=== PATIENT | male | born 1940 | race Caucasian/White ===

== ENCOUNTER 2016-10-27 14:00 | Emergency (ER) | payer MEDICARE, BC ==
[~2016-10-27] VITALS: Ht 182.9 cm; Wt 82.0 kg
[2016-10-27 14:05] VITALS: BP 148/80; PULSE 104; RESP 16; TEMP 97.8; O2SAT 97
[2016-10-27] MEDS ORDERED: MEDR4PAK PO (14:23)
[2016-10-27] MEDS ORDERED: HYDR-3533 PO (14:23)
[2016-10-27] MEDS ORDERED: CYCL1TAB29 PO ×2 (14:23→14:47)
[2016-10-27] MEDS ORDERED: OXYC1CAP PO (14:23)
[2016-10-27] MEDS ORDERED: PRAV40TA2 PO (14:23)
[2016-10-27] MEDS ORDERED: ASPI1TAB69 PO (14:23)
[2016-10-27] MEDS ORDERED: NAPR500T PO (14:47)
--- NOTE | 2016-10-27 14:48 | PD ---
HPI Chief Complaint: Musculoskeletal Complaint Time Seen by Provider: 14:47 Travel History International Travel<30 days: No Contact w/Intl Traveler<30days: No Traveled to known affect area: No History of Present Illness HPI 76-year-old male with a history of chronic neck pain and hyperlipidemia presents to the emergency department for evaluation of right shoulder pain for 9 days. Patient states that 9 days ago he was pulling down on a lever he was using to secure his camper when he felt pain on the upper aspect of his right shoulder. States that he has had pain in this area has been constant since this occurred. States he was seen at urgent care 5 days ago and given prescriptions for Flexeril and prednisone. States that these did improve his symptoms but he feels that his symptoms are now returning because he is running out of these medications. He describes the pain as being a sharp pain that is aggravated with movement and alleviated with rest. The patient is here visiting from [place] for the next 2 months and does not have a doctor in the area. He has chronic neck pain with multiple herniated disks in his neck and has been taking Lortab 5325 milligrams 3 times daily. States that he also had some oxycodone left over from a previous prescription and was taking that also but has since run out of that. No other complaints. PFSH Past Medical History High Cholesterol: Yes Diminished Hearing: No Herniated Disk: Yes Tetanus Vaccination: < 5 Years Influenza Vaccination: No Social History Alcohol Use: Yes (socially) Tobacco Use: No Substance Use: No Allergies-Medications (Allergen,Severity, Reaction): Coded Allergies: Penicillin (Verified Allergy, Unknown, 10/27/16) Reported Meds & Prescriptions Reported Meds & Active Scripts Active Naproxen 500 Mg Tab 500 Mg PO BID 10 Days Flexeril (Cyclobenzaprine HCl) 10 Mg Tab 10 Mg PO TID 7 Days Reported Medrol Dosepak (Methylprednisolone) 4 Mg Dspk 4 Mg PO DIRECTED Per Pharmacist direction Flexeril (Cyclobenzaprine HCl) 10 Mg Tab 10 Mg PO TID Pravastatin 40 Mg Tab 40 Mg PO HS Oxycodone (Oxycodone HCl) 5 Mg Cap 5 Mg PO Q4H PRN Lortab (Hydrocodone-Acetaminophen) 5-325 Mg Tab 1 Tab PO Q4H PRN Aspirin 81 Mg Tabdr 81 Mg PO DAILY Review of Systems Except as stated in HPI: all other systems reviewed are Neg Physical Exam Narrative GENERAL: Well-nourished and well-developed pleasant male patient in no acute distress who is nontoxic appearing. SKIN: Warm and dry. HEAD: Normocephalic and atraumatic. EYES: No injection, drainage, or hyphema noted. PERRLA. EOMI. ENT: No nasal drainage noted. Oropharynx is clear and the TMs are normal with good landmarks. NECK: Supple and the trachea is midline. No midline bony point tenderness to palpation. Patient is indicating that his pain is located in the middle of his right trapezius muscle. He does have tenderness to palpation in the right trapezius muscle. CARDIOVASCULAR: Regular rate and rhythm. RESPIRATORY: Breath sounds are equal bilaterally with no accessory muscle use, wheezing, rhonchi, or crackles. MUSCULOSKELETAL: No tenderness to palpation of the right shoulder, full range of motion in the right shoulder without pain. No obvious deformities, swelling , cyanosis, or ecchymosis is present throughout the upper and lower extremities. Patient has full range of motion without any signs of neurovascular compromise. BACK: Nontender without any obvious deformities, bony point tenderness, or crepitus noted throughout the thoracic and lumbar vertebrae. NEUROLOGICAL: Awake, alert, and oriented. Normal speech and gait. Cranial nerves are grossly intact. Data Data Last Documented VS Vital Signs Date Time Temp Pulse Resp B/P Pulse Ox O2 Delivery O2 Flow Rate FiO2 10/27/16 14:24 104 16 10/27/16 14:05 97.8 148/80 97 MDM Medical Decision Making Medical Screen Exam Complete: Yes Emergency Medical Condition: Yes Differential Diagnosis Muscle strain versus muscle spasm versus cervical radiculopathy Narrative Course 76-year-old male presents to the emergency department for evaluation of what he initially describes as right shoulder pain but on examination is found to be right trapezius pain. Patient is afebrile, vital signs are stable. He has a long history of chronic neck pain with multiple herniated disks in his neck. I suspect that this pain in his right trapezius is muscle spasm or radiculopathy secondary to his neck pain. His right shoulder is completely unremarkable. There is no emergent imaging indicated at this time. He already has Lortab at home for his pain. He is here because he is running out of the Flexeril he was prescribed by an urgent care recently and he is asking for an anti- inflammatory. I'll give him a refill of the Flexeril and a prescription for naproxen. We discussed supportive care and when to return to the emergency department. He is ultimately advised to follow up as an outpatient with a PCP. Patient verbalizes understanding and agreement with treatment plan. Diagnosis Primary Impression: Strain of right trapezius muscle Qualified Code: S46.811A - Strain of right trapezius muscle, initial encounter Referrals: Primary Care Physician Patient Instructions: General Instructions Additional Instructions: Apply ice or heat to help alleviate symptoms. Take medications as prescribed with food and a full glass of water. Follow-up with your Primary Care Physician. Return to the ED for any acute worsening of symptoms. Med/Other Pt SpecificInfo: Prescription(s) given Scripts Naproxen 500 Mg Shi943 Mg PO BID 10 Days Ref 0 Prov:Adrianna Velez DO 10/27/16 Cyclobenzaprine (Flexeril)10 Mg Tab10 Mg PO TID 7 Days Ref 0 Prov:Adrianna Velez DO 10/27/16 Disposition: 01 DISCHARGE HOME Condition: Stable Micki Carranza Oct 27, 2016 14:48
== END 2016-10-27 14:55 | disposition home or self-care (01) ==
LOC: PHEFT 14:00
DX: S46.811A Strain of other muscles, fascia and tendons at shoulder and upper arm level, right arm, initial encounter (principal); M54.2 Cervicalgia; G89.29 Other chronic pain; E78.00 Pure hypercholesterolemia, unspecified; X50.0XXA Overexertion from strenuous movement or load, initial encounter; Y93.89 Activity, other specified; Y92.833 Campsite as the place of occurrence of the external cause
CPT/HCPCS: 99283